=== PATIENT | female | born 1975 | race Asian ===

== ENCOUNTER 2017-06-13 15:25 | Inpatient (IN) | payer BC ==
[2017-06-13] MEDS: ONDANSETRON 4 MG INJ IV (16:34)
[2017-06-13 16:51] LABS: ADD MAN DIFF? NO
[2017-06-13 16:52] LABS: WHITE BLOOD COUNT 6.6 10^3/ul (4.8-10.8)
[2017-06-13 16:52] LABS: BASOPHILS % 0.3 % (0.0-2.0); EOSINOPHILS # 0.1 10^3/ul (0.0-0.5); EOSINOPHILS % 2.1 % (0.0-7.0); HEMATOCRIT 38.5 % (37.0-47.0); HEMOGLOBIN 13.2 g/dl (12.0-16.0); LYMPHOCYTES # 1.6 10^3/ul (0.8-2.9); LYMPHOCYTES % 24.8 % (15.0-51.0); MEAN CORPUSCULAR HGB CONC 34.3 g/dl (32.0-37.0); MEAN CORPUSCULAR VOLUME 87.5 fl (82.0-101.0); MEAN PLATELET VOLUME 10.3 fl (7.4-10.4); MONOCYTE # 0.6 10^3/ul (0.3-0.9); NEUTROPHIL # 4.2 10^3/ul (1.6-7.5); NEUTROPHILS % 63.5 % (39.0-77.0); PLATELET COUNT 307 10^3/UL (140-415); RED CELL DISTRIBUTION WIDTH 13.5 % (11.5-14.5)
[2017-06-13 17:02] LABS: ADD UMIC YES; UR ASCORBIC ACID NEGATIVE (NEGATIVE); UR BACTERIA FEW /HPF (NONE SEEN); UR BILIRUBIN (Dip) NEGATIVE (NEGATIVE); UR BLOOD (Dip) 1+ mg/dL (NEGATIVE); UR CALCIUM OXALATE CRYSTAL MANY /HPF (NONE SEEN); UR CLARITY SLIGHTLY CLOUDY (CLEAR); UR COLOR AMBER (YELLOW); UR GLUCOSE (Dip) NEGATIVE (NEGATIVE); UR KETONES (Dip) NEGATIVE (NEGATIVE); UR LEUKOCYTE ESTERASE (Dip) NEGATIVE Leu/ul (NEGATIVE); UR MUCUS FEW /HPF (NONE SEEN); UR NITRITE (Dip) NEGATIVE (NEGATIVE); UR RBC 3 /HPF (0-5); UR SQUAMOUS EPITHELIAL CELL MODERATE /HPF (FEW); UR TOTAL PROTEIN (Dip) NEGATIVE (NEGATIVE); UR UROBILINOGEN (Dip) 2+ mg/dL (NEGATIVE); UR WBC 1 /HPF (0-5)
[2017-06-13 17:08] LABS: ALANINE AMINOTRANSFERASE 736 IU/L (13-69); ALBUMIN 4.6 g/dl (3.3-4.9); ALBUMIN/GLOBULIN RATIO 1.04; ALKALINE PHOSPHATASE 270 IU/L (42-121); ANION GAP 19 (8-16); ASPARTATE AMINO TRANSFERASE 324 IU/L (15-46); BILIRUBIN,INDIRECT 0.8 mg/dl (0-1.1); BILIRUBIN,TOTAL 1.1 mg/dl (0.2-1.3); BLOOD UREA NITROGEN 8 mg/dl (7-20); CALCIUM 9.3 mg/dl (8.4-10.2); CARBON DIOXIDE 25 mmol/L (21-31); CHLORIDE 107 mmol/L (97-110); CREATININE 0.75 mg/dl (0.44-1.00); GLUCOSE 72 mg/dl (70-220); LIPASE 282 U/L (23-300); POTASSIUM 3.4 mmol/L (3.5-5.1); SODIUM 148 mmol/L (135-144)
[2017-06-13] MEDS: POTASSIUM CHLORIDE (SR) 20 MEQ TAB PO (19:01)
[2017-06-13] MEDS: metroNIDAZOLE 500 MG/NS (PMX) 100 ML IVPB (19:14)
[2017-06-13] MEDS: SOD CHLORIDE 0.9% 1,000 ML IV (19:14)
[2017-06-13] MEDS: CEFTRIAXONE 1 GM/50 ML (PMX) 50 ML IVPB (19:14)
[2017-06-14] MEDS ORDERED: NACL 0.9% 3 ML SYG IV
[2017-06-14] MEDS ORDERED: ALBUTEROL/IPRATROPIUM (NEB) 3 ML AMP HHN
[2017-06-14] MEDS ORDERED: morphine 2 MG INJ IV
[2017-06-14] MEDS: DEXTROSE 5%-0.45% NACL 1,000 ML IV ×3 (00:11→16:28)
[2017-06-14] MEDS: DIPHENHYDRAMINE 50 MG INJ IV (03:16)
[2017-06-14 05:39] LABS: ADD MAN DIFF? NO
[2017-06-14 05:45] LABS: WHITE BLOOD COUNT 5.4 10^3/ul (4.8-10.8)
[2017-06-14 05:45] LABS: BASOPHILS % 0.6 % (0.0-2.0); EOSINOPHILS # 0.2 10^3/ul (0.0-0.5); EOSINOPHILS % 3.7 % (0.0-7.0); HEMATOCRIT 34.8 % (37.0-47.0); HEMOGLOBIN 11.6 g/dl (12.0-16.0); LYMPHOCYTES # 1.6 10^3/ul (0.8-2.9); LYMPHOCYTES % 29.9 % (15.0-51.0); MEAN CORPUSCULAR HEMOGLOBIN 29.2 pg (29.0-33.0); MEAN CORPUSCULAR HGB CONC 33.3 g/dl (32.0-37.0); MEAN CORPUSCULAR VOLUME 87.7 fl (82.0-101.0); MEAN PLATELET VOLUME 10.6 fl (7.4-10.4); MONOCYTE # 0.5 10^3/ul (0.3-0.9); MONOCYTES % 8.4 % (0.0-11.0); NEUTROPHIL # 3.1 10^3/ul (1.6-7.5); NEUTROPHILS % 57.2 % (39.0-77.0); PLATELET COUNT 263 10^3/UL (140-415); RED BLOOD COUNT 3.97 10^6/ul (4.20-5.40); RED CELL DISTRIBUTION WIDTH 13.4 % (11.5-14.5)
[2017-06-14 06:06] LABS: ALANINE AMINOTRANSFERASE 596 IU/L (13-69); ALBUMIN 3.8 g/dl (3.3-4.9); ALBUMIN/GLOBULIN RATIO 1.11; ALKALINE PHOSPHATASE 236 IU/L (42-121); ANION GAP 15 (8-16); ASPARTATE AMINO TRANSFERASE 246 IU/L (15-46); BILIRUBIN,INDIRECT 0.5 mg/dl (0-1.1); BILIRUBIN,TOTAL 0.5 mg/dl (0.2-1.3); BLOOD UREA NITROGEN 6 mg/dl (7-20); CALCIUM 8.4 mg/dl (8.4-10.2); CARBON DIOXIDE 20 mmol/L (21-31); CHLORIDE 112 mmol/L (97-110); GLUCOSE 122 mg/dl (70-220); MAGNESIUM 2.1 mg/dl (1.7-2.5); PHOSPHORUS 2.8 mg/dl (2.5-4.9); POTASSIUM 3.9 mmol/L (3.5-5.1); SODIUM 143 mmol/L (135-144); TOTAL PROTEIN 7.2 g/dl (6.1-8.1)
[2017-06-14] MEDS ORDERED: SUCCINYLCHOLINE CHLORIDE 100 MG/5 ML SYG IV (07:00)
[2017-06-14] MEDS ORDERED: CIPRO 400 MG/200 ML D5W IVPB (07:00)
[2017-06-14] MEDS: FAMOTIDINE 20 MG INJ IV ×2 (10:43→21:20)
[2017-06-14] MEDS: LEVOFLOXACIN 500MG/D5W (PMX) 100 ML IVPB (10:43)
[2017-06-14] MEDS ORDERED: IOHEXOL 300MG/ML 30 ML BTL (13:18)
[2017-06-14] MEDS ORDERED: NEOSTIGMINE 3 MG/3 ML SYRINGE (13:45)
[2017-06-14] MEDS ORDERED: LIDOCAINE 2% (SDV) 5 ML INJ (13:45)
[2017-06-14] MEDS ORDERED: ROCURONIUM 50 MG INJ (13:45)
[2017-06-14] MEDS ORDERED: GLYCOPYRROLATE 0.4 MG INJ (13:45)
[2017-06-14] MEDS ORDERED: PROPOFOL 20 ML (13:45)
[2017-06-14] MEDS ORDERED: FENTAnyl 50 MCG/ML VIAL (13:45)
[2017-06-14] MEDS ORDERED: MIDAZOLAM 1 MG/ML 2 ML INJ ×2 (13:46)
[2017-06-14] MEDS ORDERED: ONDANSETRON 4 MG INJ (13:47)
[2017-06-14] MEDS ORDERED: DEXAMETHASONE 4 MG/ML 1 ML INJ (13:47)
[2017-06-14] MEDS ORDERED: FLUMAZENIL 0.5 MG INJ (14:35)
[2017-06-14] MEDS ORDERED: FENTAnyl 25 MCG IV (15:30)
[2017-06-14] MEDS ORDERED: OXYCODONE/ACETAMINOPHEN (5/325) 1 TAB PO (15:30)
[2017-06-14] MEDS ORDERED: ATROPINE 0.4 MG IV (15:30)
[2017-06-14] MEDS ORDERED: MIDAZOLAM IV (15:30)
[2017-06-14] MEDS ORDERED: ONDANSETRON 4 MG INJ IV (15:30)
[2017-06-14] MEDS: ONDANSETRON 4 MG INJ IV (17:27)
[2017-06-15] MEDS: DEXTROSE 5%-0.45% NACL 1,000 ML IV ×3 (01:22→17:28)
[2017-06-15 05:39] LABS: ADD MAN DIFF? NO
[2017-06-15 05:44] LABS: WHITE BLOOD COUNT 9.1 10^3/ul (4.8-10.8)
[2017-06-15 05:44] LABS: BASOPHILS % 0.2 % (0.0-2.0); HEMATOCRIT 33.1 % (37.0-47.0); LYMPHOCYTES # 1.3 10^3/ul (0.8-2.9); LYMPHOCYTES % 13.9 % (15.0-51.0); MEAN CORPUSCULAR HEMOGLOBIN 29.5 pg (29.0-33.0); MEAN CORPUSCULAR HGB CONC 33.2 g/dl (32.0-37.0); MEAN CORPUSCULAR VOLUME 88.7 fl (82.0-101.0); MEAN PLATELET VOLUME 10.9 fl (7.4-10.4); MONOCYTE # 0.7 10^3/ul (0.3-0.9); MONOCYTES % 7.5 % (0.0-11.0); NEUTROPHIL # 7.1 10^3/ul (1.6-7.5); PLATELET COUNT 259 10^3/UL (140-415); RED BLOOD COUNT 3.73 10^6/ul (4.20-5.40); RED CELL DISTRIBUTION WIDTH 13.2 % (11.5-14.5)
[2017-06-15 06:12] LABS: ALANINE AMINOTRANSFERASE 539 IU/L (13-69); ALBUMIN 3.7 g/dl (3.3-4.9); ALBUMIN/GLOBULIN RATIO 1.15; ALKALINE PHOSPHATASE 200 IU/L (42-121); ANION GAP 15 (8-16); ASPARTATE AMINO TRANSFERASE 153 IU/L (15-46); BILIRUBIN,INDIRECT 0.9 mg/dl (0-1.1); BILIRUBIN,TOTAL 0.9 mg/dl (0.2-1.3); BLOOD UREA NITROGEN 5 mg/dl (7-20); CALCIUM 8.5 mg/dl (8.4-10.2); CARBON DIOXIDE 23 mmol/L (21-31); CHLORIDE 110 mmol/L (97-110); CREATININE 0.59 mg/dl (0.44-1.00); GLUCOSE 136 mg/dl (70-220); POTASSIUM 3.6 mmol/L (3.5-5.1); SODIUM 144 mmol/L (135-144); TOTAL PROTEIN 6.9 g/dl (6.1-8.1)
[2017-06-15] MEDS: FAMOTIDINE 20 MG INJ IV ×2 (09:06→21:09)
[2017-06-15] MEDS: LEVOFLOXACIN 500MG/D5W (PMX) 100 ML IVPB (09:06)
[2017-06-16] MEDS: DEXTROSE 5%-0.45% NACL 1,000 ML IV ×3 (02:04→20:52)
[2017-06-16 05:25] LABS: ADD MAN DIFF? NO
[2017-06-16 05:30] LABS: BASOPHILS % 0.5 % (0.0-2.0); EOSINOPHILS # 0.1 10^3/ul (0.0-0.5); EOSINOPHILS % 1.5 % (0.0-7.0); HEMATOCRIT 30.8 % (37.0-47.0); HEMOGLOBIN 10.3 g/dl (12.0-16.0); LYMPHOCYTES # 2.3 10^3/ul (0.8-2.9); LYMPHOCYTES % 34.8 % (15.0-51.0); MEAN CORPUSCULAR HEMOGLOBIN 29.9 pg (29.0-33.0); MEAN CORPUSCULAR HGB CONC 33.4 g/dl (32.0-37.0); MEAN CORPUSCULAR VOLUME 89.3 fl (82.0-101.0); MEAN PLATELET VOLUME 10.5 fl (7.4-10.4); MONOCYTE # 0.5 10^3/ul (0.3-0.9); MONOCYTES % 6.8 % (0.0-11.0); NEUTROPHIL # 3.7 10^3/ul (1.6-7.5); NEUTROPHILS % 56.1 % (39.0-77.0); PLATELET COUNT 254 10^3/UL (140-415); RED BLOOD COUNT 3.45 10^6/ul (4.20-5.40); RED CELL DISTRIBUTION WIDTH 13.3 % (11.5-14.5)
[2017-06-16 05:30] LABS: WHITE BLOOD COUNT 6.6 10^3/ul (4.8-10.8)
[2017-06-16 06:04] LABS: ALANINE AMINOTRANSFERASE 429 IU/L (13-69); ALBUMIN 3.2 g/dl (3.3-4.9); ALBUMIN/GLOBULIN RATIO 1.03; ALKALINE PHOSPHATASE 156 IU/L (42-121); ANION GAP 17 (8-16); ASPARTATE AMINO TRANSFERASE 113 IU/L (15-46); BILIRUBIN,INDIRECT 0.7 mg/dl (0-1.1); BILIRUBIN,TOTAL 0.7 mg/dl (0.2-1.3); BLOOD UREA NITROGEN 5 mg/dl (7-20); CALCIUM 8.4 mg/dl (8.4-10.2); CARBON DIOXIDE 21 mmol/L (21-31); CHLORIDE 111 mmol/L (97-110); CREATININE 0.58 mg/dl (0.44-1.00); GLUCOSE 115 mg/dl (70-220); POTASSIUM 3.5 mmol/L (3.5-5.1); SODIUM 145 mmol/L (135-144); TOTAL PROTEIN 6.3 g/dl (6.1-8.1)
[2017-06-16] MEDS: FAMOTIDINE 20 MG INJ IV ×2 (10:22→20:52)
[2017-06-16] MEDS: LEVOFLOXACIN 500MG/D5W (PMX) 100 ML IVPB (10:22)
[2017-06-16] MEDS ORDERED: IOHEXOL 300MG/ML 30 ML BTL (16:05)
[2017-06-16] MEDS: INDOMETHACIN 50 MG SUPP PR ×2 (16:30)
[2017-06-16] MEDS ORDERED: FENTAnyl 50 MCG/ML VIAL (16:39)
[2017-06-16] MEDS ORDERED: MIDAZOLAM 1 MG/ML 2 ML INJ (16:39)
[2017-06-16] MEDS ORDERED: PROPOFOL 20 ML (18:59)
[2017-06-16] MEDS ORDERED: LIDOCAINE 2% (SDV) 5 ML INJ (18:59)
[2017-06-16] MEDS ORDERED: GLYCOPYRROLATE 0.4 MG INJ (18:59)
[2017-06-16] MEDS ORDERED: ONDANSETRON 4 MG INJ (18:59)
[2017-06-16] MEDS ORDERED: NEOSTIGMINE 3 MG/3 ML SYRINGE (18:59)
[2017-06-16] MEDS ORDERED: ROCURONIUM 50 MG INJ (18:59)
[2017-06-16] MEDS ORDERED: ONDANSETRON 4 MG INJ IV (19:30)
[2017-06-16] MEDS ORDERED: FENTAnyl 50 MCG/ML VIAL IV (19:30)
[2017-06-16] MEDS ORDERED: HYDROmorphONE (0.2 MG/ML) 10ML SYG IV (19:30)
[2017-06-16] MEDS ORDERED: MEPERIDINE 25 MG INJ IV (19:30)
[2017-06-16] MEDS ORDERED: DIPHENHYDRAMINE 50 MG INJ IV (19:30)
[2017-06-16] MEDS: HYDROmorphONE (0.2 MG/ML) 10ML SYG IV (20:13)
[2017-06-16] MEDS: ONDANSETRON 4 MG INJ IV (23:15)
[2017-06-16] MEDS: ACETAMINOPHEN 325 MG TAB PO (23:18)
[2017-06-17 05:08] LABS: ADD MAN DIFF? NO
[2017-06-17] MEDS: DEXTROSE 5%-0.45% NACL 1,000 ML IV ×3 (05:11→16:43)
[2017-06-17 05:14] LABS: BASOPHILS % 0.1 % (0.0-2.0); EOSINOPHILS % 0.5 % (0.0-7.0); HEMATOCRIT 29.5 % (37.0-47.0); HEMOGLOBIN 9.9 g/dl (12.0-16.0); LYMPHOCYTES # 1.2 10^3/ul (0.8-2.9); LYMPHOCYTES % 14.9 % (15.0-51.0); MEAN CORPUSCULAR HEMOGLOBIN 29.6 pg (29.0-33.0); MEAN CORPUSCULAR HGB CONC 33.6 g/dl (32.0-37.0); MEAN CORPUSCULAR VOLUME 88.1 fl (82.0-101.0); MEAN PLATELET VOLUME 10.4 fl (7.4-10.4); MONOCYTE # 0.5 10^3/ul (0.3-0.9); MONOCYTES % 6.2 % (0.0-11.0); NEUTROPHIL # 6.1 10^3/ul (1.6-7.5); NEUTROPHILS % 77.9 % (39.0-77.0); PLATELET COUNT 245 10^3/UL (140-415); RED BLOOD COUNT 3.35 10^6/ul (4.20-5.40); RED CELL DISTRIBUTION WIDTH 12.6 % (11.5-14.5)
[2017-06-17 05:14] LABS: WHITE BLOOD COUNT 7.8 10^3/ul (4.8-10.8)
[2017-06-17 05:49] LABS: ALANINE AMINOTRANSFERASE 399 IU/L (13-69); ALBUMIN 3.2 g/dl (3.3-4.9); ALKALINE PHOSPHATASE 168 IU/L (42-121); ANION GAP 14 (8-16); ASPARTATE AMINO TRANSFERASE 169 IU/L (15-46); BILIRUBIN,INDIRECT 0.3 mg/dl (0-1.1); BILIRUBIN,TOTAL 0.3 mg/dl (0.2-1.3); BLOOD UREA NITROGEN 6 mg/dl (7-20); CALCIUM 7.9 mg/dl (8.4-10.2); CARBON DIOXIDE 25 mmol/L (21-31); CHLORIDE 107 mmol/L (97-110); CREATININE 0.59 mg/dl (0.44-1.00); GLUCOSE 115 mg/dl (70-220); POTASSIUM 3.5 mmol/L (3.5-5.1); SODIUM 142 mmol/L (135-144); TOTAL PROTEIN 6.1 g/dl (6.1-8.1)
[2017-06-17] MEDS: FAMOTIDINE 20 MG INJ IV ×2 (09:17→20:38)
[2017-06-17] MEDS: LEVOFLOXACIN 500MG/D5W (PMX) 100 ML IVPB (09:17)
[2017-06-17] MEDS: ONDANSETRON 4 MG INJ IV (09:17)
[2017-06-17 19:27] LABS: CANCER ANTIGEN 19-9 14.7 U/ml (0.0-37.0)
[2017-06-18] MEDS: ACETAMINOPHEN 325 MG TAB PO (02:03)
[2017-06-18 05:17] LABS: ADD MAN DIFF? NO
[2017-06-18 05:21] LABS: BASOPHILS % 0.4 % (0.0-2.0); EOSINOPHILS # 0.2 10^3/ul (0.0-0.5); EOSINOPHILS % 4.6 % (0.0-7.0); HEMATOCRIT 28.4 % (37.0-47.0); HEMOGLOBIN 9.9 g/dl (12.0-16.0); LYMPHOCYTES # 1.6 10^3/ul (0.8-2.9); LYMPHOCYTES % 32.1 % (15.0-51.0); MEAN CORPUSCULAR HEMOGLOBIN 30.5 pg (29.0-33.0); MEAN CORPUSCULAR HGB CONC 34.9 g/dl (32.0-37.0); MEAN CORPUSCULAR VOLUME 87.4 fl (82.0-101.0); MEAN PLATELET VOLUME 10.4 fl (7.4-10.4); MONOCYTE # 0.4 10^3/ul (0.3-0.9); MONOCYTES % 7.3 % (0.0-11.0); NEUTROPHIL # 2.7 10^3/ul (1.6-7.5); NEUTROPHILS % 55.2 % (39.0-77.0); PLATELET COUNT 258 10^3/UL (140-415); RED BLOOD COUNT 3.25 10^6/ul (4.20-5.40); RED CELL DISTRIBUTION WIDTH 12.8 % (11.5-14.5)
[2017-06-18 05:48] LABS: ALANINE AMINOTRANSFERASE 315 IU/L (13-69); ALBUMIN/GLOBULIN RATIO 0.96; ALKALINE PHOSPHATASE 182 IU/L (42-121); ANION GAP 14 (8-16); ASPARTATE AMINO TRANSFERASE 103 IU/L (15-46); BILIRUBIN,INDIRECT 0.4 mg/dl (0-1.1); BILIRUBIN,TOTAL 0.4 mg/dl (0.2-1.3); BLOOD UREA NITROGEN 4 mg/dl (7-20); CALCIUM 8.2 mg/dl (8.4-10.2); CARBON DIOXIDE 24 mmol/L (21-31); CHLORIDE 111 mmol/L (97-110); CREATININE 0.66 mg/dl (0.44-1.00); GLUCOSE 103 mg/dl (70-220); POTASSIUM 3.3 mmol/L (3.5-5.1); SODIUM 146 mmol/L (135-144); TOTAL PROTEIN 6.1 g/dl (6.1-8.1)
[2017-06-18] MEDS: DEXTROSE 5%-0.45% NACL 1,000 ML IV (05:48)
[2017-06-18] MEDS: FAMOTIDINE 20 MG INJ IV (09:07)
[2017-06-18] MEDS: LEVOFLOXACIN 500MG/D5W (PMX) 100 ML IVPB (09:07)
[2017-06-18 11:08] LABS: IRON 51 ug/dl (35-150)
[2017-06-18] MEDS: POTASSIUM CHLORIDE (SR) 20 MEQ TAB PO (11:15)
[2017-06-18 11:18] LABS: % IRON SATURATION 17 % SAT (22-52); TOTAL IRON BINDING CAPACITY 297 ug/dl (241-421)
== END 2017-06-18 16:15 | disposition home or self-care (01) | DRG 446 ==
LOC: MS1 21:39 → FTE 15:25 → MS1 06-14 07:45
PROC: 0F768DZ Dilation of Left Hepatic Duct with Intraluminal Device, Via Natural or Artificial Opening Endoscopic (ICD-10-PCS; principal; 2017-06-14 13:00)
PROC: 0F758DZ Dilation of Right Hepatic Duct with Intraluminal Device, Via Natural or Artificial Opening Endoscopic (ICD-10-PCS; 2017-06-14 13:00)
PROC: 0FC98ZZ Extirpation of Matter from Common Bile Duct, Via Natural or Artificial Opening Endoscopic (ICD-10-PCS; 2017-06-14 13:50)
PROC: 0FPB8DZ Removal of Intraluminal Device from Hepatobiliary Duct, Via Natural or Artificial Opening Endoscopic (ICD-10-PCS; 2017-06-14 13:50)
DX: K80.21 Calculus of gallbladder without cholecystitis with obstruction (principal); D64.9 Anemia, unspecified; E87.6 Hypokalemia; E87.8 Other disorders of electrolyte and fluid balance, not elsewhere classified; R82.71 Bacteriuria; R74.0 Nonspecific elevation of levels of transaminase and lactic acid dehydrogenase [LDH]
CPT/HCPCS: 36415; 74181; 74330; 76705; 80053; 81001; 83540; 83690; 83735; 84100; 84703; 85025; 86301; 96374; 96375; 99285-25

== ENCOUNTER 2017-06-21 03:18 | Emergency (ER) | payer BC ==
[2017-06-21 03:45] LABS: URINE BLOOD (Dip) POC 1+ (NEGATIVE); URINE GLUCOSE (Dip) POC Negative (NEGATIVE); URINE KETONES (Dip) POC Negative (NEGATIVE); URINE LEUKOCYTE EST (Dip) POC Negative (NEGATIVE); URINE NITRITE (Dip) POC Negative (NEGATIVE); URINE TOTAL PROTEIN POC Negative (NEGATIVE)
[2017-06-21] MEDS: SOD CHLORIDE 0.9% 1,000 ML IV (03:51)
[2017-06-21] MEDS: ONDANSETRON 4 MG INJ IV (03:51)
[2017-06-21] MEDS: morphine 4 MG/ML VIAL IV ×2 (03:51→05:10)
[2017-06-21 04:15] LABS: ADD MAN DIFF? NO
[2017-06-21 04:16] LABS: BASOPHILS % 0.2 % (0.0-2.0); EOSINOPHILS # 0.3 10^3/ul (0.0-0.5); HEMATOCRIT 37.9 % (37.0-47.0); HEMOGLOBIN 12.9 g/dl (12.0-16.0); LYMPHOCYTES # 1.3 10^3/ul (0.8-2.9); LYMPHOCYTES % 9.9 % (15.0-51.0); MEAN CORPUSCULAR HEMOGLOBIN 29.7 pg (29.0-33.0); MEAN CORPUSCULAR VOLUME 87.1 fl (82.0-101.0); MONOCYTE # 0.6 10^3/ul (0.3-0.9); MONOCYTES % 4.9 % (0.0-11.0); NEUTROPHIL # 10.4 10^3/ul (1.6-7.5); NEUTROPHILS % 82.8 % (39.0-77.0); PLATELET COUNT 378 10^3/UL (140-415); RED BLOOD COUNT 4.35 10^6/ul (4.20-5.40); RED CELL DISTRIBUTION WIDTH 12.4 % (11.5-14.5)
[2017-06-21 04:16] LABS: WHITE BLOOD COUNT 12.6 10^3/ul (4.8-10.8)
[2017-06-21 04:33] LABS: ALANINE AMINOTRANSFERASE 355 IU/L (13-69); ALBUMIN 4.7 g/dl (3.3-4.9); ALBUMIN/GLOBULIN RATIO 1.23; ALKALINE PHOSPHATASE 295 IU/L (42-121); ANION GAP 17 (8-16); ASPARTATE AMINO TRANSFERASE 175 IU/L (15-46); BILIRUBIN,INDIRECT 0.5 mg/dl (0-1.1); BILIRUBIN,TOTAL 0.5 mg/dl (0.2-1.3); BLOOD UREA NITROGEN 6 mg/dl (7-20); CALCIUM 9.3 mg/dl (8.4-10.2); CARBON DIOXIDE 29 mmol/L (21-31); CHLORIDE 102 mmol/L (97-110); CREATININE 0.63 mg/dl (0.44-1.00); GLUCOSE 117 mg/dl (70-220); LIPASE 39 U/L (23-300); POTASSIUM 3.8 mmol/L (3.5-5.1); SODIUM 144 mmol/L (135-144); TOTAL PROTEIN 8.5 g/dl (6.1-8.1)
== END 2017-06-21 06:19 | disposition home or self-care (01) ==
LOC: E/R 03:18
DX: K80.50 Calculus of bile duct without cholangitis or cholecystitis without obstruction (principal)
CPT/HCPCS: 36415; 80053; 81003; 81025; 83690; 85025; 96374; 96375; 96376; 99284-25